=== PATIENT | female | born 1990 | race African-American/Black ===

== ENCOUNTER 2016-09-01 14:16 | Emergency (ER) ==
[2016-09-01 14:45] LABS: URINE CULTURE NEEDED? NO; URINE MICRO REVIEW NEEDED? NO; URINE SOURCE CLEAN CATCH
[2016-09-01 14:58] LABS: BILIRUBIN URINE NEGATIVE (NEGATIVE); BLOOD URINE NEGATIVE (NEGATIVE); COLOR YELLOW; GLUCOSE URINE NEGATIVE (NEGATIVE); LEUKOCYTES URINE NEGATIVE (NEGATIVE); NITRITE URINE NEGATIVE (NEGATIVE); PH URINE 6.5; PROTEIN URINE NEGATIVE (NEGATIVE); SP GRAVITY URINE 1.023; TURBIDITY URINE CLEAR (CLEAR); UROBILINOGEN URINE 2 mg/dL (NORMAL)
[2016-09-01 14:59] LABS: UR EPITHELIAL CELLS <10 /HPF (<10); URINE BACTERIA 1+ /HPF; URINE RBC <10 /HPF (<10); URINE WBC <10 /HPF (<10)
--- NOTE | 2016-09-01 15:14 | PROVIDER DOCUMENTATION ---
HPI-Female /OB/Breast - General Source: reports: patient - History of Present Illness-Female /OB Does patient report she is ?: No Location of complaint: reports: other (back) Quality of Pain: reports: aching Severity in ED: reports: mild Onset/Duration: reports: gradual, 1 week ago Timing: reports: still present, constant Context/Activities at Onset: reports: none Vaginal Symptoms: reports: no symptoms Urinary Symptoms: reports: dysuria, frequency, incontinent, low back pain Modifying Factors: worse with: urinating Associated Symptoms: reports: back/neck pain. denies: diaphoresis, dizziness, fever/chills, nausea, vomiting Similar Symptoms Previously?: No Recently seen or treated by another doctor?: No <Trace Carrasquillo - Last Filed: 09/01/16 15:11> <Saji Casas - Last Filed: 09/01/16 15:28> - General Chief Complaint: UTI Symptoms Stated Complaint: OVERACTIVE BLADDER Time Seen by Provider: 09/01/16 14:49 Allergies/Adverse Reactions: Patient Allergies Allergy/AdvReac Type Severity Reaction Status Date / Time No Known Allergies Allergy Unverified 09/01/16 14:59 Home Medications: Home Medication List Medication Instructions Recorded Confirmed Last Taken Type Cephalexin [Keflex] 500 mg PO Q6HR #28 capsule 09/01/16 Unknown Rx Phenazopyridine HCl [Pyridium] 100 mg PO TID #6 tablet 09/01/16 Unknown Rx - History of Present Illness-Female /OB Nature of Presenting Problem: patient is a 26 y/o F that presents to the ER with dysuria, incontinence and frequency with urinary issues. has low back pain denies fever/chills, n/v/d. ( Trace Carrasquillo) Review of Systems - Adult - REVIEW OF SYSTEMS - ADULT Constitutional: denies: chills, fever Eyes: reports: no symptoms reported Ears, Nose, Mouth & Throat: reports: no symptoms reported Cardiovascular: denies: chest pain, palpitations, syncope Respiratory: denies: cough, shortness of breath, wheezing Gastrointestinal: denies: abdominal pain, diarrhea, nausea, vomiting Genitourinary: reports: dysuria, frequency, incontinence Musculoskeletal: reports: back pain. denies: joint pain Integumentary: reports: no symptoms reported Neurological: reports: no symptoms reported Psychiatric: reports: no symptoms reported Endocrine: reports: no symptoms reported Hematologic/Lymphatic: reports: no symptoms reported Allergic/Immunologic: reports: no symptoms reported All Other Systems: Reviewed and Negative <Trace Carrasquillo - Last Filed: 09/01/16 15:11> Past History - Adult - PAST MEDICAL HISTORY-ADULT Review of Records: reports: Old Records Reviewed, Nursing Assessment Review, Medications Reviewed - PRIOR SURGERIES/PROCEDURES Surgical/Procedure History: reports: none - IMMUNIZATION STATUS Childhood Immunizations: See Nurse Assessment Flu Vaccine: See Nurse Assessment - FAMILY HISTORY Family History: reviewed, not pertinent - SOCIAL HISTORY Smoking: cigarettes, less than 1 pack/day Living Situation: family <Trace Carrasquillo - Last Filed: 09/01/16 15:11> Physical Exam-General - PHYSICAL EXAM-ADULT Initial Vital Signs Reviewed: Yes - CONSTITUTIONAL General Appearance: alert, no apparent distress - EYES Eyes: PERRL/EOMI, pink conjunctivae - HEAD, EARS, NOSE, MOUTH & THROAT HENMT: normocephalic/atraumatic, moist mucous membranes, normal ENT inspection - NECK Neck: full range of motion, normal inspection. negative: lymphadenopathy - RESPIRATORY Respiratory: lungs clear, normal breath sounds, no respiratory distress, no accessory muscle use - CARDIOVASCULAR Cardiovascular: regular rate, rhythm, no gallop, no murmur - GASTROINTESTINAL (ABDOMEN) Abdominal Exam: normal bowel sounds, non tender, soft, no organomegaly, no pulsatile mass - MUSCULOSKELETAL Back Exam: no CVA tenderness, no vertebral tenderness Extremity: normal range of motion, normal inspection - SKIN Integumentary: normal color, warm/dry - NEUROLOGIC Neurologic: grossly normal, no motor/sensory deficits - PSYCHIATRIC Psych/Mental Status: normal mood/affect, normal thought content, normal thought process, oriented x 3 <Trace Carrasquillo - Last Filed: 09/01/16 15:11> Progress <Trace Carrasquillo - Last Filed: 09/01/16 15:11> <Saji Casas - Last Filed: 09/01/16 15:28> - PLAN OF CARE/RESULTS Progress/Plan/Lab Results: Laboratory Tests 09/01/16 09/01/16 14:38 14:38 Urine Source CLEAN CATCH Urine Color YELLOW Urine Turbidity CLEAR Urine pH 6.5 Ur Specific [place] 1.023 Urine Protein NEGATIVE Ur Glucose (Stick) NEGATIVE Ur Ketones (Stick) NEGATIVE Urine Blood NEGATIVE Urine Nitrite NEGATIVE Urine Bilirubin NEGATIVE Urobilinogen Dipstick 2 A Urine Leukocytes NEGATIVE Urine WBC (Auto) <10 Urine RBC (Auto) <10 U Epithel Cells (Auto) <10 Urine Bacteria (Auto) 1+ Urine Test NEGATIVE Orders Category Date Time Status TEST-URINE [PREG] Stat Lab 09/01/16 14:38 Completed UA NIMS W/REFLEX CULT [URINALYSIS] Stat Lab 09/01/16 14:38 Completed Vital Signs Temp Pulse Resp BP Pulse Ox 09/01/16 14:25 98.4 F 89 18 117/73 100 No Known Allergies Allergy (Unverified 09/01/16 14:59) No Home Medications 09/01/16 I&O 08/31/16 09/01/16 09/02/16 06:59 06:59 06:59 Output Total 80 Balance -80 Laboratory 09/01/16 09/01/16 14:38 14:38 Urine Source CLEAN CATCH Urine Color YELLOW Urine Turbidity CLEAR Urine pH 6.5 Ur Specific [place] 1.023 Urine Protein NEGATIVE Ur Glucose (Stick) NEGATIVE Ur Ketones (Stick) NEGATIVE Urine Blood NEGATIVE Urine Nitrite NEGATIVE Urine Bilirubin NEGATIVE Urobilinogen Dipstick 2 A Urine Leukocytes NEGATIVE Urine WBC (Auto) <10 Urine RBC (Auto) <10 U Epithel Cells (Auto) <10 Urine Bacteria (Auto) 1+ Urine Test NEGATIVE I talked to the pt for a while about her symptoms and she eventually revealed that after her last child was born in March she did not have any vaginal intercourse until the last 2 weeks. She has had almost daily sex multiple times a day since that time. 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 Discussed this c her and she is in agreement. (Saji Casas) Departure <Trace Carrasquillo - Last Filed: 09/01/16 15:11> - Departure Time of Disposition Order: 15:27 Certified Medical Emergency: Emergent <Sjai Casas - Last Filed: 09/01/16 15:28> - Departure DIAGNOSIS: Urethritis Disposition: HOME 01 Condition: Good Additional Instructions: Take medication as prescribed. Pelvic rest for 5 days. Follow up with a urologist for continued symptoms. ED Follow Up Instructions: You have been treated by a care provider in the Emergency Department. These instructions are being provided to you so you can have an understanding of how to care for yourself upon discharge. Upon discharge from the Emergency Department, you are responsible for making arrangements for follow-up care by a physician of your choice. Take all prescribed medications as directed. Return to the Emergency Department immediately for any new or worsening symptoms. You may call the Physician Referral phone number at [phone] to obtain a list of Physicians who are taking new patients. Prescriptions: Cephalexin [Keflex] 500 mg PO Q6HR #28 capsule Phenazopyridine HCl [Pyridium] 100 mg PO TID #6 tablet Referrals: None,PCP [Primary Care Provider] - Terrell Nova MD [STAFF PHYSICIAN] - Attestation - Scribe Verification/Attestation Scribe:: Trace Carrasquillo Acting as Scribe for:: Saji Casas Scribe documention review:: This chart was documented by a scribe and accurately reflects the service the provider performed and the decisions made by the provider. - Physician/ CAILIN Attestation Patient care was provided by Advanced Practice Provider:: Yes Advanced Practice Provider:: Saji Casas Advanced Practice Provider documentation review:: The Mid-level provider documentation, treatment plan and medical decision making was reviewed by the physician who agrees with all treatment and medical decision making by the MLP. <Trace Carrasquillo - Last Filed: 09/01/16 15:11> - Physician/ CAILIN Attestation Patient care was provided by Advanced Practice Provider:: Yes Advanced Practice Provider:: Saji Casas Advanced Practice Provider documentation review:: The Mid-level provider documentation, treatment plan and medical decision making was reviewed by the physician who agrees with all treatment and medical decision making by the MLP. <Saji Casas - Last Filed: 09/01/16 15:28> Physician Attestation - Physician Attestation I, the provider, attest to the following statement:: Saji Casas Physician documentation Attestation:: This documentation recorded by the scribe accurately reflects the service I personally performed and the decisions made by me. <Trace Carrasquillo - Last Filed: 09/01/16 15:11>
[2016-09-01 15:38] VITALS: BP 135/91
== END 2016-09-01 15:36 | disposition home or self-care (01) ==
LOC: ED 14:16
DX: N34.2 Other urethritis (principal); M54.5 Low back pain; R30.0 Dysuria; R35.0 Frequency of micturition; R32 Unspecified urinary incontinence; F17.210 Nicotine dependence, cigarettes, uncomplicated
CPT/HCPCS: 81001; 81025

== ENCOUNTER 2019-08-26 04:58 | Inpatient (IN) ==
[2019-08-26] MEDS ORDERED: AMPICILLIN 2 GM in NS 100 ML IV ONE (05:05)
[2019-08-26] MEDS ORDERED: KEFZOL 2 GM/D5W 2 GM/50 ML IVPB IV PRN (05:05)
[2019-08-26] MEDS ORDERED: ZOFRAN IV PRN (05:05)
[2019-08-26] MEDS ORDERED: REGLAN PO PRN (05:05)
[2019-08-26] MEDS ORDERED: PEPCID PO PRN ×2 (05:05)
[2019-08-26] MEDS ORDERED: PEPCID IV PRN (05:05)
[2019-08-26] MEDS ORDERED: MINERAL OIL TOP PRN (05:09)
[2019-08-26] MEDS ORDERED: XYLOCAINE-MPF 1% INJ PRN (05:09)
[2019-08-26] MEDS ORDERED: SODIUM CHLORIDE 0.9% INJ SCH (05:15)
[2019-08-26] MEDS ORDERED: PITOCIN 30 UNITS/NS 30 UNIT/500 ML IV.SOLN IV SCH (05:15)
[2019-08-26 05:39] LABS: URINE SOURCE VOIDED
[2019-08-26] MEDS: LR 1,000 ML IV SCH ×3 (05:46→22:08)
[2019-08-26 05:50] LABS: BILIRUBIN URINE NEGATIVE (NEGATIVE); BLOOD URINE NEGATIVE (NEGATIVE); COLOR YELLOW; GLUCOSE URINE NEGATIVE (NEGATIVE); KETONE URINE TRACE mg/dL (NEGATIVE); LEUKOCYTES URINE MODERATE (NEGATIVE); NITRITE URINE NEGATIVE (NEGATIVE); PH URINE 6.5; PROTEIN URINE TRACE mg/dL (NEGATIVE); SP GRAVITY URINE 1.013; TURBIDITY URINE HAZY (CLEAR); UROBILINOGEN URINE NORMAL (NORMAL)
[2019-08-26 06:23] LABS: UR AMPHETAMINES QUAL NONE DETECTED (NONE DETECT); UR BARBITUATES QUAL NONE DETECTED (NONE DETECT); UR BENZODIAZEPIN QUAL NONE DETECTED (NONE DETECT); UR CANNABINOIDS QUAL NONE DETECTED (NONE DETECT); UR METHADONE QUAL NONE DETECTED (NONE DETECT); UR OPIATES QUAL NONE DETECTED (NONE DETECT); UR OXYCODONE QUAL NONE DETECTED (NONE DETECT); UR PCP QUAL NONE DETECTED (NONE DETECT)
[2019-08-26 06:28] LABS: BASO# 0.01 X1000 (0.0-0.2); BASO% 0.1 % (0.0-0.8); EOS# 0.08 X1000 (0.0-0.7); EOS% 0.9 % (0.0-10.0); HEMOGLOBIN 11.1 g/dL (12.0-16.0); IMM GRAN# 0.04 X1000 (0.0-0.04); IMM GRAN% 0.4 % (0.0-0.5); LYMPH# 2.48 X1000 (1.2-3.4); LYMPH% 27.4 % (20.5-51.1); MCHC 31.7 g/dL (33-37); MCV 88.2 FL (81-99); MONO# 0.79 X1000 (0.11-0.59); MONO% 8.7 % (1.7-9.3); NEUT# 5.66 X1000 (1.4-6.5); NEUT% 62.5 % (42.2-75.2); PLT 235 X1000 (130-400); RBC 3.97 XMIL (4.2-5.4); RDW 15.3 % (11.5-14.5); WBC 9.06 X1000 (4.8-10.8)
[2019-08-26 06:39] LABS: UR COCAINE QUAL NONE DETECTED (NONE DETECT)
[2019-08-26] MEDS ORDERED: FENTANYL IV ONE (08:15)
[2019-08-26] MEDS ORDERED: NAROPIN 0.2% INJ ONE (08:15)
[2019-08-26] MEDS: STADOL IV PRN ×2 (08:33→10:34)
[2019-08-26] MEDS ORDERED: FENTANYL-BUPIV-NS 500 MCG-0.125% 250 ML EPIDURAL SCH (09:00)
[2019-08-26] MEDS: AMPICILLIN 1 GM in NS 50 ML IV SCH ×3 (09:22→23:12)
--- NOTE | 2019-08-26 10:57 | HISTORY AND PHYSICAL ---
HISTORY OF PRESENT ILLNESS: The patient is a 29-year-old black female, G 7, P 5, A 1, who is at 40 and 6/7 weeks by late third trimester ultrasound, who had been incarcerated. The patient had a group B strep culture that was positive, limited care. She has proven with 5 previous vaginal deliveries. PAST MEDICAL HISTORY: Unremarkable. PAST SURGICAL HISTORY: She has had D and C. PAST OB HISTORY: G 7, P 5, elective AB x1. INTER[employer]IVE [employer]EL[employer] HISTORY: Menarche at age 13. REVIEW OF SYSTEMS: All systems reviewed and noncontributory. FAMILY HISTORY: Significant for high blood pressure. SOCIAL HISTORY: Tobacco use: Positive. Alcohol use: None. MEDICATIONS: vitamins and iron. ALLERGIES: No known drug allergies. PHYSICAL EXAMINATION: VITAL SIGNS: Height 5 feet 2 inches, weight 193 pounds, temperature 97.7 degrees, blood pressure 125/83, pulse is 77, respirations 18, heart rate in the 130s with good ftoc-hw-heur variability. HEENT: Pupils equal, round, reactive to light and accommodation. Extraocular movements intact. Oropharynx clear. NECK: Supple. No thyromegaly. LUNGS: Clear to auscultation. HEART: Regular rate and rhythm. ABDOMEN: Gravid, nontender. Cervix was 4 cm dilated, 50% effaced, -2 station and intact membranes. EXTREMITIES: No clubbing, cyanosis or edema noted. NEUROLOGIC: Cranial nerves 2-12 grossly intact. Motor 5/5. DTRs 2+ bilaterally. LABS: Her hemoglobin was 11.1, hematocrit 35.0, platelet count was 235,000. ASSESSMENT/PLAN: A 29-year-old black female, G 7, P 5, A 1 at 40 and 6/7 weeks gestation by late third trimester ultrasound for induction of labor. Patient group B strep positive. Will be given antibiotics during her labor course, and anticipate vaginal delivery. Patient may have epidural if desired. cc: Zeyad Chamberlain III, MD
[2019-08-26] MEDS ORDERED: NAROPIN 0.5% ONE ×2 (14:37→14:39)
[2019-08-26] MEDS ORDERED: BICITRA PO ONE (14:45)
[2019-08-26] MEDS ORDERED: NEO-SYNEPHRINE ONE (14:46)
[2019-08-26] MEDS ORDERED: SODIUM CHLORIDE 0.9% 10 ML ONE (14:49)
[2019-08-26] MEDS ORDERED: DURAMORPH ONE (14:54)
[2019-08-26] MEDS ORDERED: BOOSTRIX VACCINE IM ONE (16:20)
[2019-08-26] MEDS ORDERED: NORCO-5 PO PRN (16:20)
[2019-08-26] MEDS ORDERED: ATARAX PO PRN (16:20)
[2019-08-26] MEDS ORDERED: PHENERGAN IM PRN (16:20)
[2019-08-26] MEDS ORDERED: PITOCIN IM PRN (16:20)
[2019-08-26] MEDS ORDERED: HYDROXYZINE IM PRN (16:20)
[2019-08-26] MEDS ORDERED: DEMEROL PO PRN ×2 (16:20)
[2019-08-26] MEDS ORDERED: DEMEROL IM PRN (16:20)
[2019-08-26] MEDS ORDERED: MYLICON PO PRN (16:20)
[2019-08-26] MEDS ORDERED: AMBIEN PO PRN (16:20)
[2019-08-26] MEDS ORDERED: M-M-R II VACCINE SUBQ ONE (16:20)
[2019-08-26] MEDS ORDERED: DULCOLAX PR PRN (16:20)
[2019-08-26] MEDS ORDERED: PITOCIN 20 UNITS/NS 20 UNITS/1,000 ML IV.SOLN IV ONE (16:20)
[2019-08-26] MEDS: TORADOL IV SCH ×2 (17:36→23:28)
--- NOTE | 2019-08-26 19:32 | OPERATIVE NOTE ---
PROCEDURE DATE: 08/26/2019 PREOPERATIVE DIAGNOSIS: Intrauterine at 40 and 6/7 weeks with failure to progress. POSTOP DIAGNOSIS: Intrauterine at 40 and 6/7 weeks with failure to progress with operative delivery of a male infant, 8 pounds 4 ounces with Apgars of 8 and 9 at 1530 on 08/26/2019. Brow presentation was noted. PROCEDURE: Primary low-transverse section. SURGEON: Dr. Chamberlain. ASSIST: ORT. ANESTHESIA: Spinal, Dr. Lemos. FINDINGS: Normal-appearing uterus, tubes, and ovaries. COMPLICATIONS: None. DRAINS: Grier to straight drain. ESTIMATED BLOOD LOSS: 700 mL. SPECIMENS REMOVED: Placenta. COUNTS: All counts were correct x3. INDICATIONS: Patient is a 29-year-old black female, G 7, P 5, A 1, 40 and 6/7 weeks who had induction of labor however she had a failure to progress at 8 cm and she was unable to move past 8 cm for over 2 hours while on Pitocin. Difficult to assess presentation due to lack of engagement. Will proceed with operative delivery. Patient counseled about the risks of surgery including bleeding, infection, bowel or bladder injury. PROCEDURE: Patient was taken to Labor and Delivery OR. Spinal anesthesia was placed and the patient was placed in supine position with a roll under right hip and then she was prepped and draped in sterile fashion with placement Grier catheter. Adequate anesthesia was noted by using Allis clamps on skin and the transverse incision made on lower uterine segment using scalpel. This was then taken down sharply to the fascia layer, small jesse was made in rectus fascia. Fascial incision was then extended bilaterally by curved Kent scissors. The superior and inferior aspects of the rectus fascia were then bluntly, sharply dissected. Rectus muscle was divided midline. Peritoneal layer was entered bluntly and this incision was extended superiorly and inferiorly with care taken to avoid the bladder. Bladder reflection was created and then bladder blade was placed into the abdominal cavity and then a transverse incision was made on lower uterine segment using scalpel, this was then extended bilaterally by the surgeon's fingers and head was then elevated toward the hysterotomy site and appeared to be brow presentation. Then the head was delivered atraumatically with gentle fundal pressure, bulb suction of nose and mouth. At this point in time then delivery of the rest the body was accomplished with gentle fundal pressure atraumatically. Umbilical cord was clamped twice and cut, infant handed to nursery nurse in attendance for delivery. Cord blood sample was obtained at this time. Placenta was then manually extracted. Uterus was exteriorized. Wet lap was placed around the uterus. Dry lap was then used to curette the uterine cavity of clots and debris. Uterine incision was then closed using 0 chromic in a running, locking fashion. She had areas of oozing on the left corner and the right corner, this made hemostatic using [id number] stitches of 0 chromic. Posterior cul-de-sac was then irrigated copiously. Uterus was then placed back into the abdominal cavity after it had been exteriorized and the 2 moistened laps were used to cleanse the pericolic gutters bilaterally. Bladder and uterine incision were inspected and good hemostasis was noted. Peritoneal layer was then closed using 2-0 chromic in a running fashion x1. Rectus muscle was then reapproximated with 2 interrupted sutures of 2-0 chromic. The fascial incision was then closed using 0 PDS in a running fashion x1. Subcutaneous layer was then irrigated copiously. Electrocautery was used to obtain hemostasis and the skin was then reapproximated using danilo. The patient tolerated the procedure well was taken recovery room in stable condition. All counts were correct x3. cc: Zeyad Chamberlain III, MD MTDD
[2019-08-26] MEDS ORDERED: BLISTEX MEDICATED BERRY LIP BALM TOP PRN (23:07)
[2019-08-26] MEDS: PERICOLACE PO SCH (23:28)
[2019-08-26] MEDS: MYLICON PO SCH (23:28)
[2019-08-27] MEDS: TYLENOL PO PRN ×3 (00:59→17:25)
[2019-08-27] MEDS: PITOCIN 10 UNITS/NS 1,000 ML IV SCH ×2 (05:10→13:07)
[2019-08-27 05:42] LABS: BASO# 0.01 X1000 (0.0-0.2); BASO% 0.1 % (0.0-0.8); EOS# 0.01 X1000 (0.0-0.7); EOS% 0.1 % (0.0-10.0); HEMATOCRIT 31.7 % (37.0-47.0); HEMOGLOBIN 9.9 g/dL (12.0-16.0); IMM GRAN# 0.07 X1000 (0.0-0.04); IMM GRAN% 0.4 % (0.0-0.5); LYMPH# 1.93 X1000 (1.2-3.4); LYMPH% 10.9 % (20.5-51.1); MCH 27.7 PG (27-31); MCHC 31.2 g/dL (33-37); MCV 88.8 FL (81-99); MONO# 1.08 X1000 (0.11-0.59); MONO% 6.1 % (1.7-9.3); MPV 10.3 FL (7.4-10.4); NEUT# 14.67 X1000 (1.4-6.5); NEUT% 82.4 % (42.2-75.2); PLT 252 X1000 (130-400); RBC 3.57 XMIL (4.2-5.4); WBC 17.77 X1000 (4.8-10.8)
[2019-08-27] MEDS: TORADOL IV SCH ×2 (05:59→10:33)
--- NOTE | 2019-08-27 08:55 | OB/GYN PROGRESS NOTE ---
- Subjective S. Patient resting in bed with no complaints. She is ambulating and eating well. She has light vaginal bleeding. She is bottle feeding and baby is doing well. OB Physical Exam Vital Signs - 8 hr 08/27/19 01:04 08/27/19 04:16 08/27/19 06:08 Temperature 97.6 F 97.6 F Pulse Rate 75 71 77 Respiratory Rate 18 16 16 Blood Pressure 135/88 117/81 120/79 O2 Sat by Pulse Oximetry 98 99 100 - CONSTITUTIONAL General Appearance: appears well - HEAD, EARS, NOSE, MOUTH & THROAT HENMT: normocephalic/atraumatic - RESPIRATORY Respiratory: chest non-tender - CARDIOVASCULAR Cardiovascular: regular rate, rhythm - GASTROINTESTINAL (ABDOMEN) Abdominal Exam: non tender, soft (Bandage dry, uterus below the umbilicus.) - NEUROLOGIC Neurologic: grossly normal - PSYCHIATRIC Psych/Mental Status: normal mood/affect Active Medications Generic Name Dose Route Start Last Admin Trade Name Freq PRN Reason Stop Dose Admin Acetaminophen 650 mg 08/26/19 05:05 08/27/19 06:04 Tylenol PO 650 mg Q4-6H PRN PRN Administration Headache Hydrocodone Bitart/Acetaminophen 1 each 08/26/19 16:20 [place]-5 PO Q3H PRN PRN Pain (1-6 on Pain Scale) Hydrocodone Bitart/Acetaminophen 1 each 08/26/19 16:20 [place]-10 PO Q3-4H PRN PRN Pain (7-10 on Pain Scale) Bisacodyl 10 mg 08/26/19 16:20 Dulcolax [place] PRN PRN gas unrelieved by Mylicon Butorphanol Tartrate 2 mg 08/26/19 05:05 08/26/19 10:34 Stadol IV 2 mg PRN PRN Administration Pain Famotidine 40 mg 08/26/19 05:05 Pepcid PO Q12H PRN PRN GI upset or indigestion Famotidine 20 mg 08/26/19 05:05 Pepcid IV Q12H PRN PRN GI upset or indigestion Hydroxyzine HCl 50 mg 08/26/19 16:20 Atarax PO Q3-4H PRN PRN Nausea Hydroxyzine HCl 50 mg 08/26/19 16:20 Hydroxyzine IM Q3-4H PRN PRN Nausea Lactated Ringer's 1,000 mls @ 125 mls/hr 08/27/19 16:20 Lr IV .Q8H DIAMOND Ibuprofen 800 mg 08/26/19 16:20 Motrin PO Q8H PRN PRN Pain Ketorolac Tromethamine 30 mg 08/26/19 16:30 08/27/19 05:59 Toradol IV 08/27/19 10:31 30 mg Q6H DIAMOND Administration Lidocaine HCl 30 ml 08/26/19 05:09 Xylocaine-Mpf 1% INJ PRN PRN At bedside for delivery Meperidine HCl 50 mg 08/26/19 16:20 Demerol IM Q3H PRN PRN Pain Meperidine HCl 50 mg 08/26/19 16:20 Demerol PO Q4H PRN PRN Pain (1-6 on Pain Scale) Meperidine HCl 100 mg 08/26/19 16:20 Demerol PO Q4H PRN PRN Pain (7-10 on Pain Scale) Metoclopramide HCl 10 mg 08/26/19 05:05 Reglan PO ONCE PRN PRN section Mineral Oil 30 ml 08/26/19 05:09 Mineral Oil TOP PRN PRN At bedside for delivery Ondansetron HCl 4 mg 08/26/19 05:05 08/26/19 19:07 Zofran IV 4 mg PRN PRN Administration Nausea Oxybenzone/Padimate O/Dimethicone 0 gm 08/26/19 23:07 08/26/19 23:27 Blistex Medicated Chamberlain Lip [place] TOP 1 applic PRN PRN Administration Dry Lips Oxytocin 20 unit 08/26/19 16:20 Pitocin IM PRN PRN Severe bleeding Promethazine HCl 25 mg 08/26/19 16:20 Phenergan IM Q3H PRN PRN Pain Senna/Docusate Sodium 1 each 08/26/19 21:00 08/26/19 23:28 Pericolace PO 1 each QHS DIAMOND Administration Simethicone 80 mg 08/26/19 18:00 08/26/19 23:28 Mylicon PO 80 mg PC + HS DIAMOND Administration Simethicone 80 mg 08/26/19 16:20 Mylicon PO PRN PRN GAS Sodium Chloride 5 - 10 ml 08/26/19 05:15 Sodium Chloride 0.9% INJ DIRECTED DIAMOND Zolpidem Tartrate 10 mg 08/26/19 16:20 Ambien PO HS PRN PRN Sleep Laboratory Results - last 24 hr 08/27/19 05:05 WBC 17.77 H RBC 3.57 L Hgb 9.9 L Hct 31.7 L MCV 88.8 MCH 27.7 MCHC 31.2 L RDW Std Deviation 15.0 H Plt Count 252 MPV 10.3 Immature Gran % (Auto) 0.4 Neut % (Auto) 82.4 H Lymph % (Auto) 10.9 L [place] % (Auto) 6.1 Eos % (Auto) 0.1 Baso % (Auto) 0.1 Immature Gran # (Auto) 0.07 H Neut # (Auto) 14.67 H Lymph # (Auto) 1.93 [place] # (Auto) 1.08 H Eos # (Auto) 0.01 Baso # (Auto) 0.01 OB Assessment & Plan (1) care following delivery Status: Acute Plan: 29yo s/p LTCS PPD #1. patient doing well. Routine care.
[2019-08-27] MEDS: MYLICON PO SCH ×5 (09:10→21:51)
[2019-08-27] MEDS: NORCO-10 PO PRN ×3 (10:30→23:50)
[2019-08-27] MEDS: LR 1,000 ML IV SCH (17:18)
[2019-08-27] MEDS: MOTRIN PO PRN (19:37)
[2019-08-27] MEDS: PERICOLACE PO SCH (21:51)
[2019-08-28] MEDS: NORCO-10 PO PRN ×3 (04:53→19:37)
[2019-08-28] MEDS: MOTRIN PO PRN ×3 (04:53→22:12)
[2019-08-28] MEDS: LR 1,000 ML IV SCH ×2 (05:02→08:56)
--- NOTE | 2019-08-28 07:22 | OB/GYN PROGRESS NOTE ---
- Subjective PO2 no cx vssaf s/nt -cce PO2 CS 2/2 failure to progress ambulating and voiding well karon reg diet home in am OB Physical Exam Vital Signs - 8 hr 08/28/19 04:59 Pulse Rate 88 Respiratory Rate 16 Blood Pressure 123/81 O2 Sat by Pulse Oximetry 100 - CONSTITUTIONAL General Appearance: appears well Active Medications Generic Name Dose Route Start Last Admin Trade Name Freq PRN Reason Stop Dose Admin Acetaminophen 650 mg 08/26/19 05:05 08/27/19 17:25 Tylenol PO 650 mg Q4-6H PRN PRN Administration Headache Hydrocodone Bitart/Acetaminophen 1 each 08/26/19 16:20 [place]-5 PO Q3H PRN PRN Pain (1-6 on Pain Scale) Hydrocodone Bitart/Acetaminophen 1 each 08/26/19 16:20 08/28/19 04:53 [place]-10 PO 1 each Q3-4H PRN PRN Administration Pain (7-10 on Pain Scale) Bisacodyl 10 mg 08/26/19 16:20 Dulcolax [place] PRN PRN gas unrelieved by Mylicon Butorphanol Tartrate 2 mg 08/26/19 05:05 08/26/19 10:34 Stadol IV 2 mg PRN PRN Administration Pain Famotidine 40 mg 08/26/19 05:05 Pepcid PO Q12H PRN PRN GI upset or indigestion Famotidine 20 mg 08/26/19 05:05 Pepcid IV Q12H PRN PRN GI upset or indigestion Hydroxyzine HCl 50 mg 08/26/19 16:20 Atarax PO Q3-4H PRN PRN Nausea Hydroxyzine HCl 50 mg 08/26/19 16:20 Hydroxyzine IM Q3-4H PRN PRN Nausea Lactated Ringer's 1,000 mls @ 125 mls/hr 08/27/19 16:20 08/28/19 05:02 Lr IV Not Given .Q8H DIAMOND Ibuprofen 800 mg 08/26/19 16:20 08/28/19 04:53 Motrin PO 800 mg Q8H PRN PRN Administration Pain Lidocaine HCl 30 ml 08/26/19 05:09 Xylocaine-Mpf 1% INJ PRN PRN At bedside for delivery Meperidine HCl 50 mg 08/26/19 16:20 Demerol IM Q3H PRN PRN Pain Meperidine HCl 50 mg 08/26/19 16:20 Demerol PO Q4H PRN PRN Pain (1-6 on Pain Scale) Meperidine HCl 100 mg 08/26/19 16:20 Demerol PO Q4H PRN PRN Pain (7-10 on Pain Scale) Metoclopramide HCl 10 mg 08/26/19 05:05 Reglan PO ONCE PRN PRN section Mineral Oil 30 ml 08/26/19 05:09 Mineral Oil TOP PRN PRN At bedside for delivery Ondansetron HCl 4 mg 08/26/19 05:05 08/26/19 19:07 Zofran IV 4 mg PRN PRN Administration Nausea Oxybenzone/Padimate O/Dimethicone 0 gm 08/26/19 23:07 08/26/19 23:27 Blistex Medicated Chamberlain Lip [place] TOP 1 applic PRN PRN Administration Dry Lips Oxytocin 20 unit 08/26/19 16:20 Pitocin IM PRN PRN Severe bleeding Promethazine HCl 25 mg 08/26/19 16:20 Phenergan IM Q3H PRN PRN Pain Senna/Docusate Sodium 1 each 08/26/19 21:00 08/27/19 21:51 Pericolace PO 1 each QHS DIAMOND Administration Simethicone 80 mg 08/26/19 18:00 08/27/19 21:51 Mylicon PO 80 mg PC + HS DIAMOND Administration Simethicone 80 mg 08/26/19 16:20 08/27/19 15:49 Mylicon PO 80 mg PRN PRN Administration GAS Sodium Chloride 5 - 10 ml 08/26/19 05:15 Sodium Chloride 0.9% INJ DIRECTED DIAMOND Zolpidem Tartrate 10 mg 08/26/19 16:20 Ambien PO HS PRN PRN Sleep
[2019-08-28] MEDS: MYLICON PO SCH ×3 (08:43→22:13)
[2019-08-28] MEDS: TYLENOL PO PRN (09:02)
[2019-08-28] MEDS: ADALAT CC PO SCH (09:48)
[2019-08-28] MEDS: PERICOLACE PO SCH (22:13)
[2019-08-29] MEDS: NORCO-10 PO PRN ×2 (00:23→09:37)
[2019-08-29] MEDS ORDERED: FLEXERIL PO ONE (01:51)
[2019-08-29] MEDS: MOTRIN PO PRN (09:37)
[2019-08-29] MEDS: ADALAT CC PO SCH (09:37)
[2019-08-29] MEDS: MYLICON PO SCH ×3 (09:37→09:42)
[2019-08-29 11:08] VITALS: BP 120/79
--- NOTE | 2019-08-29 20:07 | DISCHARGE SUMMARY ---
ADMISSION DATE: 08/26/2019 DISCHARGE DATE: 08/29/2019 The patient is a 29-year-old 7, para 5 now 6 who at approximately 41 weeks gestation with limited care, incarcerated, 5 deliveries in the past admits to labor and delivery for late term induction of labor. She is treated for group B strep prophylaxis and anticipating a normal spontaneous vaginal delivery. After a long labor dilated to 8 cm for over 2 hours despite Pitocin therapy with an unengaged presenting part, she underwent a primary section for failure to progress. Please see separate operative note. Her postoperative course was uncomplicated. On postoperative day #1 she is afebrile with stable vital signs. She is ambulating, voiding, tolerating regular diet. Postoperative hemoglobin of 9.9. Postop day #2 she is ambulating, voiding, tolerating a regular diet. Vital signs are stable. She is afebrile and she is discharged out of the hospital on postoperative day #3. Incision is clean, dry and intact. Her blood pressure is stable on 30 of Procardia XL. Pain is well managed on Motrin and [place]. She is asked to follow up in office in 1 week. Return to the office for any difficulties or problems including bleeding, fever, foul vaginal discharge. A prescription for Motrin, [place] and Procardia given. Blood pressure check in 1 week. cc: Zeyad Chamberlain III, MD
== END 2019-08-29 12:50 | disposition home or self-care (01) | DRG 788 ==
LOC: LD 04:58
PROVIDERS: ADMIT Obstetrics & Gynecology; ATTEND Obstetrics & Gynecology